=== PATIENT | female | born 1980 | race Caucasian/White ===

== ENCOUNTER 2018-01-20 14:08 | Day surgery (SDC) | payer OTHER ==
[2018-01-13 10:37] LABS: HEMATOCRIT 44.4 % (36.0-47.0); MEAN CORPUSCULAR HEMOGLOBIN 30.4 pg (27.0-33.4); MEAN CORPUSCULAR HGB CONC 33.8 g/dL (32.0-36.0); MEAN CORPUSCULAR VOLUME 90 fl (80-97); PLATELET COUNT 229 10^3/uL (150-450); RED BLOOD COUNT 4.94 10^6/uL (3.72-5.28); RED CELL DISTRIBUTION WIDTH 12.8 % (11.5-14.0); WHITE BLOOD COUNT 8.9 10^3/uL (4.0-10.5)
[~2018-01-20 14:08] MED LIST: DEXTROSE 5%-LACTATED RINGERS 1,000 ML IV PRN; LACTATED RINGERS 1000 ML IV PRN; LIDOCAINE 0.5% INJ-PF (5 MG/ML) 50 ML SDV SUBCUT PRN; LIDOCAINE 1%/EPINEPHRINE INJ 20 ML VIAL ONE
[2018-01-20] MEDS ORDERED: ACETAMINOPHEN 325 MG TABLET ONE (14:32)
[2018-01-20] MEDS ORDERED: MIDAZOLAM 2 MG/2 ML INJ ONE (15:29)
[2018-01-20] MEDS ORDERED: PROPOFOL INJ 200 MG/20 ML VIAL IV ONE (15:30)
[2018-01-20] MEDS ORDERED: CEFAZOLIN 1 GM/D5W RTU 1 GM/50 ML RTUPB IV ONE (15:33)
[2018-01-20] MEDS ORDERED: DIPHENHYDRAMINE HCL 50 MG/ML VIAL IV PRN (15:59)
[2018-01-20] MEDS ORDERED: MEPERIDINE HCL/PF INJ 25 MG/1 ML DISP.SYRIN IV PRN (15:59)
[2018-01-20] MEDS ORDERED: OXYCODONE-ACETAMINOPHEN 5-325 MG TABLET PO PRN ×3 (15:59→16:06)
[2018-01-20] MEDS ORDERED: PROMETHAZINE HCL INJ 25 MG/1 ML VIAL IV PRN ×2 (15:59)
[2018-01-20] MEDS ORDERED: FENTANYL CITRATE INJ/PF 100 MCG/2 ML AMPUL IV PRN ×3 (15:59)
--- NOTE | 2018-01-20 16:06 | Discharge Summary ---
Discharge Summary (SDC) - Discharge Final Diagnosis: Lipoma of left arm Date of Surgery: 01/20/18 Discharge Date: 01/20/18 Condition: Stable Treatment or Instructions: WOUND CARE: Do not get area wet for 48 hours. After 48 hours, you may wash the area with warm water/soap, pat dry, cover if needed. PAIN MANAGEMENT: Toradol 10mg one pill by mouth every six hours as needed for pain. FOLLOW UP: Follow up at [facility] in 7-10 days. Watch area for increased redness, swelling, foul-smelling drainage. [facility]: [phone] Prescriptions: Ketorolac Tromethamine [Toradol 10 mg Tablet] 10 mg PO Q6HP PRN #20 tablet PRN Reason: Referrals: JEFFREY ARELLANO PA-C [Primary Care Provider] - Discharge Diet: As Tolerated Discharge Activity: Activity As Tolerated Report the Following to Your Physician Immediately: Increase in Pain, Unusual Bleeding, Redness, Swelling, Warmth, Drainage-Foul Smelling
--- NOTE | 2018-01-20 16:07 | Operative Report ---
Operative Report DATE OF SURGERY: 01/20/18 PREOPERATIVE DIAGNOSIS: Lipoma left forearm POSTOPERATIVE DIAGNOSIS: Same OPERATION: Excision of left forearm lipoma SURGEON: DANK OLIVO 1ST MATHEMATICS LECTURER: THOMAS ELLIOTT ANESTHESIA: Moderate Sedation TISSUE REMOVED OR ALTERED: Disposed of COMPLICATIONS: None ESTIMATED BLOOD LOSS: Scant INTRAOPERATIVE FINDINGS: See below PROCEDURE: The patient was seen in the preoperative area by Dr. Olivo. The left forearm , distal area, between the left ulna and radial regions along the dorsal aspect of the forearm was identified by the patient to be the area of concern. This was a subtle area of nodularity. Dr. Olivo marked it with an arrow and the patient confirmed this was the area of concern to her. It was consistent with small lipomatous fatty tissue. The patient taken to the operating room where heavy LMAC anesthesia was required to settle her down. Left arm was prepped and draped in a sterile fashion. Surgical plan surgical timeout were conducted. And was anesthetized with 1% lidocaine with epinephrine. The skin was incised for a distance of approximately 2-1/2 cm. The subcutaneous tissue was manipulated using a combination of blunt dissection and hemostat. Several small lobules of fat were expressed. These were disposed of. We carefully inspected visually and by manual palpation the surrounding subcutaneous tissue and there were felt to be no further lipomas requiring removal. The wound was closed with multiple interrupted 3-0 Vicryl, benzoin and Steri-Strips. Patient tolerated the procedure well and taken recovery room stable condition. The physician assistant professor of surgery, Ms. Goldberg, provided assistance during this case by: Assisting , retracting tissue, instillation of local anesthesia and closure of skin incisions.
[2018-01-20] MEDS ORDERED: PROMETHAZINE HCL INJ 25 MG/1 ML VIAL ONE (16:13)
[2018-01-20] MEDS ORDERED: LORAZEPAM INJ 2 MG/1 ML VIAL ONE (16:37)
[2018-01-20 18:13] VITALS: BP 127/76
== END 2018-01-20 18:05 | disposition home or self-care (01) ==
LOC: OROUT 14:08
PROVIDERS: ATTEND Surgery
PROC: 0JBH0ZZ Excision of Left Lower Arm Subcutaneous Tissue and Fascia, Open Approach (ICD-10-PCS; 2018-01-20)
PROC: 0JQH0ZZ Repair Left Lower Arm Subcutaneous Tissue and Fascia, Open Approach (ICD-10-PCS; principal; 2018-01-20 16:30)
DX: D17.22 Benign lipomatous neoplasm of skin and subcutaneous tissue of left arm (principal); I38 Endocarditis, valve unspecified; K21.9 Gastro-esophageal reflux disease without esophagitis; E78.00 Pure hypercholesterolemia, unspecified; F17.210 Nicotine dependence, cigarettes, uncomplicated; Z88.0 Allergy status to penicillin; Z88.5 Allergy status to narcotic agent; Z88.8 Allergy status to other drugs, medicaments and biological substances
CPT/HCPCS: 36415; 85027; 81025; 11400; 12031; J2250; J0690; J3490; J2060; J2550; J2704; 400

== ENCOUNTER 2019-03-14 21:34 | Emergency (ER) | payer OTHER ==
--- NOTE | 2019-03-15 00:05 | ER Document Report ---
ED General - General Chief Complaint: Abdominal Pain Stated Complaint: STOMACH PAIN Time Seen by Provider: 03/14/19 23:38 Primary Care Provider: MIKY LYNCH MD [ACTIVE STAFF] - Follow up in 3-5 days (call office to make a follow up appointment) Notes: Patient is a 38-year-old female who presents with a complaint of upper abdominal pain. Abdominal pain is mostly in the epigastric and left upper quadrant. Says sometimes is worsened by eating. Sometimes is not. Some nausea but no vomiting. She said she is noticed that when she gets abdominal pain she does get some dizziness and feels like a lightheaded. She also says she feels a bit lightheaded if she turns her head to the side. No fevers. Symptoms have been intermittent for a week now. She does have a history of what sounds to be gastritis or nonbleeding ulcer and was recently switched to Esomeprazole. She says her doctor has mentioned possibly referring her for upper GI endoscopy. She has not noticed any black tarry stools. No blood in her stool. She is had normal bowel movements. No diarrhea. No other complaints at this time. Previous abdominal surgery includes upper ventral hernia repair that was performed when she was 11 years old as well as partial hysterectomy. Patient does take Excedrin on a daily basis for headaches. TRAVEL OUTSIDE OF THE [place] IN LAST 30 DAYS: No - Related Data Allergies/Adverse Reactions: adhesive Allergy (Verified 01/20/18 15:08) epinephrine Adverse Reaction (Verified 01/20/18 15:08) Past Medical History - Social History Smoking Status: Current Every Day Smoker Chew tobacco use (# tins/day): No Frequency of alcohol use: Occasional Drug Abuse: None Family History: None Patient has suicidal ideation: No Patient has homicidal ideation: No - Past Medical History Cardiac Medical History: Denies: Hx Coronary Artery Disease, Hx Heart Attack, Hx Hypertension Pulmonary Medical History: Denies: Hx Asthma, Hx Bronchitis, Hx COPD, Hx Pneumonia Neurological Medical History: Denies: Hx Cerebrovascular Accident, Hx Seizures Renal/ Medical History: Denies: Hx Peritoneal Dialysis Musculoskeletal Medical History: Denies Hx Arthritis Past Surgical History: Reports: Hx Section, Hx Gynecologic Surgery, Hx Hysterectomy - Immunizations Hx Diphtheria, Pertussis, Tetanus Vaccination: Yes Review of Systems - Review of Systems Notes: My Normal Review Basic REVIEW OF SYSTEMS: CONSTITUTIONAL : Denies fever, chills, or sweats. Denies recent illness. EENT: Denies eye, ear, throat, or mouth pain or symptoms. Denies nasal or sinus congestion. CARDIOVASCULAR: Denies chest pain. RESPIRATORY: Denies cough, cold, or chest congestion. Denies shortness of breath, difficulty breathing, or wheezing. GASTROINTESTINAL: Michael pain. No vomiting. Some nausea. GENITOURINARY: Denies difficulty urinating, painful urination, burning, frequency, or blood in urine. MUSCULOSKELETAL: Denies neck or back pain or joint pain or swelling. SKIN: Denies rash or skin lesions. NEUROLOGICAL: Denies altered mental status or loss of consciousness. Denies headache. Denies weakness or paralysis or loss of use of either side. Denies problems with gait or speech. Denies sensory or motor loss. Some dizziness ALL OTHER SYSTEMS REVIEWED AND NEGATIVE. Physical Exam - Vital signs Vitals: Temp Pulse Resp BP Pulse Ox 98.3 F 91 18 139/92 H 96 03/14/19 21:40 03/14/19 21:40 03/14/19 21:40 03/14/19 21:40 03/14/19 21:40 - Notes Notes: General Appearance: Well nourished, alert, cooperative, no acute distress, no obvious discomfort. Well-appearing. Vitals: reviewed, See vital signs table. Head: no swelling or tenderness to the head Eyes: PERRL, EOMI, Conjuctiva clear Mouth: No decreasd moisture Lungs: No wheezing, No rales, No rhonci, No accessory muscle use, good air exchange bilaterally. Heart: Normal rate, Regular rythm, No murmur, no rub Abdomen: Normal BS, soft, No rigidity, very mild epigastric and left upper quadrant abdominal tenderness to palpation. Remainder of abdomen is completely nontender., No guarding, no rebound, no abdominal masses, no organomegaly Extremities: strength 5/5 in all extremities, good pulses in all extremities, no swelling or tenderness in the extremities, no edema. Skin: warm, dry, appropriate color, no rash Neuro: speech clear, oriented x 3, normal affect, responds appropriately to questions. Cranial nerves II through XII are intact. Patient moves all extr emities without difficulty. Normal coordination of movement. Course - Re-evaluation Re-evalutation: 03/15/19 01:15 I suspect patient's left upper quadrant epigastric pain is probably related to gastritis or nonbleeding ulcer. Suspect this based on the fact that she is been having acid reflux type symptoms now for a while and her doctors giving surgeons for her to GI. This in conjunction with the location of her pain as well as her using Excedrin on a daily basis and make sense with gastritis. We will place her on Carafate. I encouraged her to continue take Nexium. I encouraged her to stop taking Excedrin. I will refer her to GI. Her laboratory evaluation is unremarkable. She had some dizziness but this seems to happen in conjunction with abdominal pain. Currently she is not dizzy and she has no focal neurologic deficits and she looks well and therefore I feel that she is safe to be discharged home. I encouraged her return to ER immediately if she has fevers, severe abdominal pain, vomiting, or worsening dizziness. Patient agrees with plan will be discharged home. Dictation of this chart was performed using voice recognition software; therefore, there may be some unintended grammatical errors. - Vital Signs Vital signs: Temp Pulse Resp BP Pulse Ox 98.3 F 91 18 139/92 H 96 03/14/19 21:40 03/14/19 21:40 03/14/19 21:40 03/14/19 21:40 03/14/19 21:40 - Laboratory Result Diagrams: 03/14/19 23:55 03/14/19 23:55 Laboratory results interpreted by me: 03/14/19 23:55 Calcium 10.4 H Discharge - Discharge Clinical Impression: Abdominal pain Qualifiers: Abdominal location: epigastric Qualified Code(s): R10.13 - Epigastric pain Condition: Good Disposition: HOME, SELF-CARE Additional Instructions: I suspect your abdominal pain could be related to gastritis or a nonbleeding ulcer. This is likely related to the use of Excedrin. Continued use of Excedrin will cause irritation of the stomach lining and sometimes develop an ulcer. Please continue take omeprazole or Nexium on a daily basis. I have prescribed a medicine called Carafate which helps protect the lining of the stomach. I will refer you to the GI physician. His name is Dr. Lynch. Please call his office for close follow-up appointment. Please return to the ER immediately if you have fevers worsening pain, vomiting of blood, or if you feel unwell that you are worsening in any way. Please try to avoid coffee. Please avoid spicy foods, acidic foods, or fried foods. Prescriptions: Sucralfate [Carafate] 1 gm PO ACHS 7 Days oral.susp Forms: Return to Work Referrals: MIKY LYNCH MD [ACTIVE STAFF] - Follow up in 3-5 days (call office to make a follow up appointment)
[2019-03-15 00:30] LABS: ABSOLUTE EOSINOPHILS # (AUTO) 0.2 10^3/uL (0.0-0.6); ABSOLUTE LYMPHOCYTES (AUTO) 3.2 10^3/uL (0.5-4.7); ABSOLUTE MONOCYTES (AUTO) 0.9 10^3/uL (0.1-1.4); BASOPHILS % (AUTO) 0.3 % (0-2); HEMATOCRIT 44.1 % (36.0-47.0); HEMOGLOBIN 14.9 g/dL (12.0-15.5); LYMPHOCYTES % (AUTO) 34.6 % (13-45); MEAN CORPUSCULAR HEMOGLOBIN 30.2 pg (27.0-33.4); MEAN CORPUSCULAR HGB CONC 33.8 g/dL (32.0-36.0); MEAN CORPUSCULAR VOLUME 89 fl (80-97); MONOCYTES % (AUTO) 9.3 % (3-13); PLATELET COUNT 253 10^3/uL (150-450); RED BLOOD COUNT 4.95 10^6/uL (3.72-5.28); RED CELL DISTRIBUTION WIDTH 12.6 % (11.5-14.0); SEGMENTED NEUTROPHILS % (AUTO) 53.8 % (42-78); TOTAL CELLS COUNTED % (AUTO) 100 %; WHITE BLOOD COUNT 9.4 10^3/uL (4.0-10.5)
[2019-03-15 00:35] LABS: ALANINE AMINOTRANSFERASE 38 U/L (9-52); ALBUMIN 4.6 g/dL (3.5-5.0); ALKALINE PHOSPHATASE 72 U/L (38-126); ANION GAP 10 (5-19); ASPARTATE AMINO TRANSFERASE 26 U/L (14-36); BILIRUBIN,DIRECT 0.2 mg/dL (0.0-0.4); BILIRUBIN,TOTAL 0.2 mg/dL (0.2-1.3); BLOOD UREA NITROGEN 12 mg/dL (7-20); CALCIUM 10.4 mg/dL (8.4-10.2); CARBON DIOXIDE 28 mmol/L (22-30); CHLORIDE 104 mmol/L (98-107); GLUCOSE 76 mg/dL (75-110); LIPASE 107.9 U/L (23-300); SODIUM 142.4 mmol/L (137-145); TOTAL PROTEIN 7.6 g/dL (6.3-8.2)
[2019-03-15 00:36] LABS: POTASSIUM 3.9 mmol/L (3.6-5.0)
--- NOTE | 2019-03-15 01:00 | RADIOLOGY REPORT (SQ) ---
EXAM DESCRIPTION: XR ABDOMEN 2 VIEWS SUPINE ERECT COMPLETED DATE/TME: 03/14/2019 23:50 CLINICAL HISTORY: LUQ abdominal pain COMPARISON: 01/04/2015 FINDINGS: Bowel: No dilated loops of large or small bowel. Moderate amount of stool. Peritoneum: No free intraperitoneal air identified. Solid organs: No definite organomegaly. Calcifications: No abnormal calcifications. Bones: No acute osseous abnormalities. Other: Visualized lung bases are clear. IMPRESSION: Nonobstructive bowel gas pattern.
[2019-03-15] MEDS ORDERED: SUCRALFATE 1 GM TABLET PO ONE (01:14)
[2019-03-15 01:52] VITALS: BP 130/87
== END 2019-03-15 01:30 | disposition home or self-care (01) ==
LOC: ER 21:34
DX: R10.13 Epigastric pain (principal); R10.12 Left upper quadrant pain; R10.816 Epigastric abdominal tenderness; R10.812 Left upper quadrant abdominal tenderness; R11.0 Nausea; R42 Dizziness and giddiness; R51 Headache; Z79.899 Other long term (current) drug therapy; Z90.711 Acquired absence of uterus with remaining cervical stump; Z91.048 Other nonmedicinal substance allergy status; F17.200 Nicotine dependence, unspecified, uncomplicated
CPT/HCPCS: 36415; 74019; 80053; 83690; 85025; 99284

== ENCOUNTER 2019-03-17 10:34 | Day surgery (SDC) | payer OTHER ==
[2019-03-17] MEDS ORDERED: FLUMAZENIL INJ 0.5 MG/5 ML VIAL ONE (11:00)
[2019-03-17] MEDS ORDERED: NALOXONE HCL INJ/PF 0.4 MG/1 ML SDV ONE (11:00)
[2019-03-17] MEDS ORDERED: ONDANSETRON HCL INJ/PF 4 MG/2 ML SDV ONE (11:00)
[2019-03-17] MEDS ORDERED: DIPHENHYDRAMINE HCL 50 MG/ML VIAL ONE (11:00)
[2019-03-17] MEDS ORDERED: EPINEPHRINE INJ 1 MG/10 ML DISP.SYRIN ONE (11:01)
[2019-03-17] MEDS ORDERED: GLUCAGON,HUMAN RECOMB 1 MG INJ ONE (11:01)
[2019-03-17] MEDS: MIDAZOLAM 2 MG/2 ML INJ ONE ×2 (12:02→12:07)
[2019-03-17] MEDS: FENTANYL CITRATE INJ/PF 100 MCG/2 ML AMPUL ONE ×2 (12:04→12:09)
--- NOTE | 2019-03-17 12:17 | Operative Report ---
Operative Report DATE OF SURGERY: 03/17/19 Operative Report: The risks benefits and alternatives of the procedure explained to the patient in detail and informed consent is obtained.A GIF Olympus video scope was inserted into the patient's mouth and hypopharynx, the esophagus is identified intubated and insufflated, the scope was then advanced through the esophagus stomach and duodenum, retroflexion maneuver is done, the esophagus stomach and first and second portions of the duodenum examined. PREOPERATIVE DIAGNOSIS: Epigastric pain rule out peptic ulcer disease POSTOPERATIVE DIAGNOSIS: Gastritis status post biopsy rule out Helicobacter pylori OPERATION: EGD with biopsy SURGEON: MIKY LYNCH ANESTHESIA: Moderate Sedation - 4 mg of Versed, 100 mcg of fentanyl. Conscious sedation monitoring time 30 minutes. TISSUE REMOVED OR ALTERED: As noted above. COMPLICATIONS: None. ESTIMATED BLOOD LOSS: None. INTRAOPERATIVE FINDINGS: As noted above. PROCEDURE: Patient tolerated the procedure well. No immediate postprocedure complications are noted. Patient is discharged in good condition. Discharge date 03/17/2019. Discharge diet: Regular. Discharge activity: Regular. 2 to 3-week follow-up to discuss findings. Patient is instructed to call the office or proceed to the emergency room should there be any further questions. Wait on the pathology.
[2019-03-17 13:39] VITALS: BP 116/78
== END 2019-03-17 13:25 | disposition home or self-care (01) ==
LOC: END 10:34
PROVIDERS: ATTEND Internal Medicine Gastroenterology
DX: K29.50 Unspecified chronic gastritis without bleeding (principal); K21.9 Gastro-esophageal reflux disease without esophagitis; Z79.899 Other long term (current) drug therapy
CPT/HCPCS: 43239; 88305 ×2; J2250; J3010; J0171; J1200; J1610; J2310; J2405; J3490

== ENCOUNTER → 2019-03-30 | Outpatient (CLI) | payer OTHER ==
--- NOTE | 2019-03-30 08:59 | RADIOLOGY REPORT (SQ) ---
EXAM DESCRIPTION: U/S ABDOMEN LIMITED W/O DOP COMPLETED DATE/TIME: 03/30/2019 8:26 am REASON FOR STUDY: RUQ ABDOMINAL PAIN R10.11 RIGHT UPPER QUADRANT PAIN COMPARISON: None. TECHNIQUE: Dynamic and static grayscale images acquired of the abdomen and recorded on PACS. Tooo laly selected color Doppler and spectral images recorded. LIMITATIONS: None. FINDINGS: PANCREAS: No masses. Visualized pancreatic duct normal caliber. LIVER: The liver measures 15.0 cm in length, normal size. No masses. Echotexture normal. LIVER VASCULATURE: Normal directional flow of the main portal vein and hepatic veins. GALLBLADDER: No stones. The gallbladder wall measures 2.9 mm, upper limits of normal gallbladder wal l thickness. The gallbladder has an elongated appearance and measures 10.7 cm in length. Normal wal l thickness. No pericholecystic fluid. ULTRASOUND-DETECTED LATHAM'S SIGN: Negative. INTRAHEPATIC DUCTS AND COMMON DUCT: CBD measures 6.6 mm in diameter, upper limits of normal. The int rahepatic ducts normal caliber. No filling defects. INFERIOR VENA CAVA: Normal flow. AORTA: No aneurysm. RIGHT KIDNEY: The right kidney measures 11.4 cm in length, normal size. Normal echogenicity. No franklin d or suspicious masses. No hydronephrosis. No calcifications. PERITONEAL AND RIGHT PLEURAL SPACE: No ascites or effusions. OTHER: No other significant findings. IMPRESSION: 1. NORMAL RIGHT UPPER QUADRANT ULTRASOUND. TECHNICAL DOCUMENTATION: JOB ID: [id number] [employer]- All Rights Reserved Reading location - IP/workstation name: [email or web address]
== END ==
LOC: RAD 07:45
PROVIDERS: ATTEND Internal Medicine Gastroenterology
DX: R10.11 Right upper quadrant pain (principal)
CPT/HCPCS: 76705

== ENCOUNTER → 2019-04-11 | Outpatient (CLI) | payer OTHER ==
--- NOTE | 2019-04-11 10:46 | RADIOLOGY REPORT (SQ) ---
EXAM DESCRIPTION: NM HIDA SCAN WITH CCK COMPLETED DATE/TIME: 04/11/2019 9:43 am REASON FOR STUDY: RUQ ABD PAIN (R10.11) R10.11 RIGHT UPPER QUADRANT PAIN COMPARISON: None. RADIONUCLIDE AND DOSE: DOSAGE RADIONUCLIDE: 5 millicuries Tc99m Mebrofenin. DOSAGE CCK: 1.8 micrograms. DOSAGE MORPHINE: Not required. The route of agent administration: Intravenous TECHNIQUE: Serial imaging right upper quadrant up to 60 minutes following injection of radionuclide. CCK injected after gallbladder visualized. LIMITATIONS: None. FINDINGS: LIVER: Normal visualization without areas of photopenia. INTRAHEPATIC BILE DUCTS: Normal size and no delay in visualization. COMMON BILE DUCT: Normal without dilatation. GALLBLADDER: Normal visualization. Calculated ejection fraction of 88%. Normal range is greater th an 35%. PHYSICAL RESPONSE: Patients presenting complaint was reproduced. OTHER: No other significant finding. IMPRESSION: Normal gallbladder ejection fraction of 88%. Patient's symptoms were reproduced with CC K administration. TECHNICAL DOCUMENTATION: JOB ID: [id number] [employer]- All Rights Reserved Reading location - IP/workstation name: [email or web address]
== END ==
LOC: RAD 07:40
PROVIDERS: ATTEND Internal Medicine Gastroenterology
DX: R10.11 Right upper quadrant pain (principal)
CPT/HCPCS: 78227; J2805; A9537; Q9969

== ENCOUNTER → 2019-04-15 | Outpatient (CLI) | payer OTHER ==
--- NOTE | 2019-04-15 11:04 | RADIOLOGY REPORT (SQ) ---
EXAM DESCRIPTION: UGI SERIES COMPLETED DATE/TIME: 04/15/2019 9:36 am REASON FOR STUDY: R10.13 EPIGASTRIC PAIN R10.13 EPIGASTRIC PAIN COMPARISON: None. TECHNIQUE: Under fluoroscopic guidance, patient ingested effervescent granules followed by thick and thin barium. Fluoroscopic spot images and routine radiographic images acquired and stored on PACS. 12 MM BARIUM TABLET GIVEN: Yes. No significant delay in passage. LIMITATIONS: None. FLUOROSCOPY TIME: FLUORO TIME: 1 minutes 21 seconds of fluoroscopy was used. 19 images saved to PACS. FINDINGS: NEUROMUSCULAR COORDINATION OF SWALLOW: Normal. No aspiration. ESOPHAGEAL MOTILITY: Normal peristalsis. No esophageal spasm. ESOPHAGEAL MUCOSA: Normal mucosa without masses or ulceration. GASTRO-ESOPHAGEAL JUNCTION: Very small sliding hiatal hernia with mild gastroesophageal reflux. 12 m m barium tablet passed through the GE junction without delay. STOMACH: Normal without masses or ulcerations. GASTRIC OUTLET: No delay in emptying. Normal pylorus. DUODENAL BULB: Normal distention. No spasm or ulceration. DUODENUM: Mucosa normal. No extrinsic masses or malrotation. PROXIMAL SMALL BOWEL: Mucosa normal. No extrinsic masses or malrotation. NON-GI TRACT STRUCTURES: No significant finding. OTHER: No other significant finding. IMPRESSION: SMALL SLIDING HIATAL HERNIA WITH MILD GASTROESOPHAGEAL REFLUX. OTHERWISE NORMAL DOUBLE CONTRAST BARIUM SWALLOW / UPPER GI SERIES. COMMENT: Quality ID [id number]: Final reports for procedures using fluoroscopy that document radiation exp osure indices, or exposure time and number of fluorographic images (if radiation exposure indices are not available) TECHNICAL DOCUMENTATION: JOB ID: [id number] [email or web address]- All Rights Reserved Reading location - IP/workstation name: [email or web address] [id number]
== END ==
LOC: RAD 08:28
PROVIDERS: ATTEND Surgery
DX: R10.13 Epigastric pain (principal)
CPT/HCPCS: 74247

== ENCOUNTER 2020-05-30 14:41 | Emergency (ER) | payer SELFPAY ==
--- NOTE | 2020-05-30 14:46 | ER Document Report ---
ED General Pain - General Stated Complaint: BACK PAIN Time Seen by Provider: 05/30/20 14:46 Primary Care Provider: MIKY LYNCH MD [ACTIVE STAFF] - Follow up as needed TRAVEL OUTSIDE OF THE [place] IN LAST 30 DAYS: No - HPI Patient complains to provider of: Back pain Notes: 39-year-old female presents with acute onset of lower back pain 10/10 sharp in nature without radiation nothing makes it better or worse. Located between T12 and L1 Patient was in the shower and twisted her back but did not fall felt acute onset of pain and thought she heard a pop in her spine. Denies any saddle anesthesia, numbness or tingling, radiation of pain, no bladder or bowel incontinence negative urinary retention. Patient denies ever having pain like this before - Related Data Allergies/Adverse Reactions: acetaminophen [From Percocet] Allergy (Verified 05/30/20 14:50) adhesive Allergy (Verified 05/30/20 14:50) oxycodone [From Percocet] Allergy (Verified 05/30/20 14:50) epinephrine Adverse Reaction (Verified 05/30/20 14:50) Past Medical History - Social History Smoking Status: Unknown if Ever Smoked Family History: None - Past Medical History Cardiac Medical History: Denies: Hx Coronary Artery Disease, Hx Heart Attack, Hx Hypertension Pulmonary Medical History: Denies: Hx Asthma, Hx Bronchitis, Hx COPD, Hx Pneumonia Neurological Medical History: Denies: Hx Cerebrovascular Accident, Hx Seizures Renal/ Medical History: Denies: Hx Peritoneal Dialysis Musculoskeletal Medical History: Denies Hx Arthritis Past Surgical History: Reports: Hx Section, Hx Gynecologic Surgery. Denies: Hx Hysterectomy - Immunizations Hx Diphtheria, Pertussis, Tetanus Vaccination: Yes Review of Systems - Review of Systems Notes: REVIEW OF SYSTEMS: CONSTITUTIONAL: -fevers, -chills EENT: -eye pain, -difficulty swallowing, -nasal congestion CARDIOVASCULAR: -chest pain, -syncope. RESPIRATORY: -cough, -SOB GASTROINTESTINAL: -abdominal pain, -nausea, -vomiting, -diarrhea GENITOURINARY: -dysuria, -hematuria MUSCULOSKELETAL: back pain SKIN: -rash or skin lesions. HEMATOLOGIC: -easy bruising or bleeding. LYMPHATIC: -swollen, enlarged glands. NEUROLOGICAL: -altered mental status or loss of consciousness, -headache, - neurologic symptoms PSYCHIATRIC: -anxiety, -depression. ALL OTHER SYSTEMS REVIEWED AND NEGATIVE. Physical Exam - Vital signs Vitals: Temp Pulse Resp BP Pulse Ox 98.2 F 80 20 129/80 H 96 05/30/20 14:41 05/30/20 14:41 05/30/20 14:41 05/30/20 14:41 05/30/20 14:41 - Notes Notes: PHYSICAL EXAMINATION: GENERAL: Well-appearing, well-nourished and in no acute distress. HEAD: Atraumatic, normocephalic. EYES: Pupils equal round, sclera anicteric, conjunctiva are normal. ENT: Surgical mask in place. NECK: Normal range of motion, BACK: Point tenderness pain paraspinal muscles lumbar spine LUNGS: No respiratory Distress, normal chest rise EXTREMITIES: Normal range of motion, No cyanosis. NEUROLOGICAL: Cranial nerves grossly intact. Normal speech, PSYCH: Normal mood, normal affect. SKIN: Warm, Dry, Course - Re-evaluation Re-evalutation: 05/30/20 15:56 Patient presents after twisting her back at home in the shower. Patient denies any neurologic symptoms, no red flags, no fever no IV drug use no blood thinners. No radicular symptoms no sciatica On physical exam. Patient given IV opioids and Valium feeling markedly improved. Patient has CAT scan thoracic spine and lumbar spine shows no acute abnormality. Patient be discharged home follow-up with PCP with prescription for oral opioids and cyclobenzaprine. Given strict return precautions for worse return please return - Vital Signs Vital signs: Temp Pulse Resp BP Pulse Ox 98.2 F 80 20 129/80 H 96 05/30/20 14:41 05/30/20 14:41 05/30/20 14:41 05/30/20 14:41 05/30/20 14:41 Discharge - Discharge Clinical Impression: Back pain Qualifiers: Back pain location: low back pain Chronicity: acute Back pain laterality: right Sciatica presence: without sciatica Qualified Code(s): M54.5 - Low back pain Condition: Stable Disposition: HOME, SELF-CARE Instructions: Low Back Pain ([facility]), Muscle Strain ([facility]) Prescriptions: Cyclobenzaprine HCl [Flexeril 10 mg Tablet] 10 mg PO TIDP PRN #15 tab PRN Reason: Oxycodone HCl [Oxycontin Ir 5 Mg Tablet] 5 mg PO Q4H PRN #15 tablet PRN Reason: For Pain Referrals: MIKY LYNCH MD [ACTIVE STAFF] - Follow up as needed
[2020-05-30] MEDS: DIAZEPAM INJ 10 MG/2 ML DISP.SYRIN IV ONE (15:31)
[2020-05-30] MEDS: MORPHINE SULFATE 10 MG/ML INJ IV ONE ×2 (15:34→17:00)
--- NOTE | 2020-05-30 15:41 | RADIOLOGY REPORT (SQ) ---
EXAM DESCRIPTION: CT LUMBAR SPINE WITHOUT IMAGES COMPLETED DATE/TIME: 05/30/2020 3:24 pm REASON FOR STUDY: pain COMPARISON: None. TECHNIQUE: Axial images acquired through the lumbar spine without intravenous contrast. Images revi ewed with lung, soft tissue and bone windows. Reconstructed coronal and sagittal MPR images reviewed . All images stored on PACS. All CT scanners at this facility use dose modulation, iterative reconstruction, and/or weight based d osing when appropriate to reduce radiation dose to as low as reasonably achievable (ALARA). [facility]: Dose Right [facility]: CareDose [facility]: Dose Right [facility]: Teradose 4D [facility]: [employer] LIMITATIONS: None. FINDINGS: SEGMENTATION: There are 5 lumbar-type vertebral bodies. There is no transitional segment at the lumbosacral junction. ALIGNMENT: No scoliotic curvature or spondylolisthesis. VERTEBRAL BODIES: The lumbar vertebral body heights are preserved. There is no fracture. DISCS: The L5-S1 intervertebral disc space is narrowed and there is associated vacuum disc phenomena and endplate osteophyte formation. In addition, at L5-S1, there is an osteophytic ridge that encroac hes upon the inferior aspect of the neuroforamina and results in mild to moderate bilateral foraminal stenosis. PEDICLES, TRANSVERSE PROCESSES: Intact. FACETS, POSTERIOR ELEMENTS: Osteoarthrosis of the L4-5 and L5-S1 facet joints. HARDWARE: None in the spine. VISUALIZED RIBS: No fractures. SOFT TISSUES: No abnormality. OTHER: No other finding. IMPRESSION: No acute fracture or malalignment of the lumbar spine. TECHNICAL DOCUMENTATION: JOB ID: [id number] Quality ID # [id number]: Final reports with documentation of one or more dose reduction techniques (e.g., Au tomated exposure control, adjustment of the mA and/or kV according to patient size, use of iterative reconstruction technique) 2010 [email or web address]- All Rights Reserved Reading location - IP/workstation name: [email or web address]
--- NOTE | 2020-05-30 15:46 | RADIOLOGY REPORT (SQ) ---
EXAM DESCRIPTION: CT THORACIC SPINE WITHOUT IMAGES COMPLETED DATE/TIME: 05/30/2020 3:25 pm REASON FOR STUDY: pain COMPARISON: None. TECHNIQUE: Axial images acquired through the thoracic spine without intravenous contrast. Images re viewed with lung, soft tissue and bone windows. Reconstructed coronal and sagittal MPR images review ed. Images stored on PACS. All CT scanners at this facility use dose modulation, iterative reconstruction, and/or weight based d osing when appropriate to reduce radiation dose to as low as reasonably achievable (ALARA). [facility]: Dose Right [facility]: CareDose [facility]: Dose Right [facility]: Teradose 4D [facility]: [employer] RADIATION DOSE: CT Rad equipment meets quality standard of care and radiation dose reduction techniq ues were employed. CTDIvol: 34.8 mGy. DLP: 1396 mGy-cm. LIMITATIONS: None. FINDINGS: VISUALIZED LUNGS: No abnormality. SOFT TISSUES: Hiatal hernia. VERTEBRAL BODIES: The thoracic vertebral body heights are preserved. There is no fracture. DISCS: The anterolateral endplate osteophytes from C3-T9. Evaluation of the spinal canal for stenosi s or cord compression is limited due to the absence of intrathecal contrast. ALIGNMENT: Normal. TRANSVERSE PROCESSES, POSTERIOR ELEMENTS: Intact. HARDWARE: None in the spine. VISUALIZED RIBS: No fractures. OTHER: No other finding. IMPRESSION: No acute fracture or malalignment of the cervical spine. TECHNICAL DOCUMENTATION: JOB ID: [id number] Quality ID # [id number]: Final reports with documentation of one or more dose reduction techniques (e.g., Au tomated exposure control, adjustment of the mA and/or kV according to patient size, use of iterative reconstruction technique) 2010 [employer]- All Rights Reserved Reading location - IP/workstation name: [email or web address]
[2020-05-30 17:01] LABS: APPEARANCE,URINE CLEAR; BILIRUBIN,URINE NEGATIVE (NEGATIVE); COLOR,URINE STRAW; GLUCOSE, URINE NEGATIVE (NEGATIVE); KETONES,URINE NEGATIVE (NEGATIVE); LEUKOCYTE ESTERASE,URINE NEGATIVE (NEGATIVE); NITRITE,URINE NEGATIVE (NEGATIVE); PROTEIN,URINE NEGATIVE (NEGATIVE); URINE SPECIFIC GRAVITY 1.005; UROBILINOGEN,URINE NEGATIVE mg/dL (<2.0)
[2020-05-30] MEDS: ONDANSETRON ODT 4 MG TAB (6 TAB/ER DISP) PO PRN (17:36)
[2020-05-30 17:43] VITALS: BP 120/65
== END 2020-05-30 17:44 | disposition home or self-care (01) ==
LOC: ER 14:41
DX: M54.5 Low back pain (principal); M54.9 Dorsalgia, unspecified; X50.1XXA Overexertion from prolonged static or awkward postures, initial encounter; Z88.8 Allergy status to other drugs, medicaments and biological substances
CPT/HCPCS: 96376; 99285; 96374; 96375; 81001; 72128; 72131; J3360; J2270

== ENCOUNTER → 2020-10-22 | Outpatient (CLI) | payer OTHER | LOC: WI 15:04 | PROVIDERS: ATTEND Obstetrics & Gynecology | DX: Z12.31 Encounter for screening mammogram for malignant neoplasm of breast (principal) | CPT/HCPCS: 77067 ==